=== PATIENT | female | born 1985 | race Caucasian/White ===

== ENCOUNTER 2019-12-13 13:36 | Outpatient (CLI) | payer OTHER, SELFPAY | END 2019-12-13 13:37 | disposition home or self-care (01) | PROVIDERS: Visit Provider Obstetrics & Gynecology | DX: Z01.818 Encounter for other preprocedural examination (principal); N39.3 Stress incontinence (female) (male) | CPT/HCPCS: 36415; 86850; 86900; 86901 ==

== ENCOUNTER 2019-12-20 00:12 | Outpatient (CLI) | payer OTHER, SELFPAY ==
[2019-12-20 19:32] LABS: SARS-CoV-2 RNA PCR Negative
== END 2019-12-20 00:13 | disposition home or self-care (01) ==
LOC: ANHCOVIDDT 00:12
PROVIDERS: Visit Provider Obstetrics & Gynecology
DX: Z01.812 Encounter for preprocedural laboratory examination (principal); Z11.59 Encounter for screening for other viral diseases
CPT/HCPCS: 87635; C9803; U0003

== ENCOUNTER 2019-12-22 01:20 | Day surgery (SDC) | payer OTHER, SELFPAY ==
[2019-12-07 12:57] VITALS: BMI 20.4
--- NOTE | 2019-12-21 22:41 | PM.IMHP ---
H&P: HPI History of Present Illness Date/Time: 12/21/19 22:41 Chief complaint: RADHA Narrative: 34 y/o with urinary leakage with jumping, coughing, or yelling. She has no nocturia, no urgency, no dysuria. She empties her bladder fully. She tried Vesicare, but this was not helpful. Her symptoms have worsened over several years and she is interested in surgical management. Review of Systems Review of Systems: All systems reviewed & are unremarkable except as noted in HPI and below PMFSH Surgical History Surgical History H/O LEEP History of tonsillectomy History of tubal ligation Social History Social History Smoking packs per day: 1 Smoking cigarettes per day: 20.0 Smoking status: Current every day smoker Tobacco type: cigarettes Second hand tobacco smoke exposure: Yes Alcohol intake: former Substance use: never Spiritual care concerns: No Meds Home Medications and Allergies Home Medications Medication Instructions Recorded Confirmed Type No Home Medications 12/07/19 12/07/19 History Allergies Allergy/AdvReac Type Severity Reaction Status Date / Time cephalexin AdvReac Mild Rash Verified 12/07/19 12:56 Exam Const: Orientation/consciousness: patient oriented x3 Other: Well-developed, well-nourished female in no acute distress. Neck: Thyroid: thyroid normal Lymphatic: no lymphadenopathy noted (in neck, axilla or inguinal nodes) Resp: Effort & Inspection: normal respiratory effort Auscultation: clear to auscultation bilaterally Cardio: Rate: regular rate Rhythm: regular rhythm Heart sounds: S1 normal heart sound present and S2 normal heart sound present GI: Other: ABD: Soft, nontender, nondistended. No guarding or rebound tenderness. No hepatosplenomegaly. : General: Yes no CVA tenderness Other: External genitalia: normal female hair distribution, without lesion. Urethral meatus: no lesion, non prolapsed. PVR 10mL. Urethral hypermobility is obvious. Bladder: no mass, nontender Vagina: well-estrogenized, without lesion or discharge. No cystocele or rectocele. Cervix: no lesion or discharge. Uterus: small, anteverted, freely mobile, nontender Adnexa: no mass or tenderness. Anus/perineum: no lesions, nontender Back/Spine/Pelvis: Back: no CVA tenderness Skin: General skin exam: normal color and no rashes or lesions noted Neuro: General: patient oriented x3 Extrem: Other: Extremities: nontender with no edema Psych: Mental Status: mental status grossly normal Affect: normal affect Assessment and Plan Assessment and plan (1) RADHA (stress urinary incontinence, female): Code(s): N39.3 - Stress incontinence (female) (male) Status: Acute Assessment and Plan: A: Genuine stress urinary incontinence. P: We reviewed surgical as well as nonsurgical options for treatment. She understands risks of surgery to include risks of anesthesia, risks of pain, infection, bleeding, blood products, thromboembolic phenomena and damage to adjacent structures such as bowel, bladder, ureters, blood vessels and nerves. She understands there is a risk of incomplete or unsatisfactory treatment of her problem. She understands there is a risk of urinary retention. She understands there is a risk she could require treatment for overactive bladder symptoms. She understands there is a risk of mesh erosion. She understands all these risks and elects to proceed with TVT/cystoscopy.
[2019-12-22] VITALS (10 sets, daily range): BP systolic 88–128; BP diastolic 60–82; PULSE 67–93; RESP 10–20; TEMP 36.1–36.7; O2SAT 99–100
--- NOTE | 2019-12-22 10:48 | WPDANESEPPF ---
Anes - Initial Pre Proc Eval Procedure: Operation Date: 12/22/19 12:00 Proposed Procedures p Tension Free Vaginal Taping - Jean Oliver MD Date/Time: 12/22/19 10:48 Surgeon: Jean Oliver MD Pre Op Diagnosis: RADHA Patient Data Age: 34 Gender: F Height: 5 ft 4 in Weight: 54 kg Allergies Allergy/AdvReac Type Severity Reaction Status Date / Time cephalexin AdvReac Mild Rash Verified 12/07/19 12:56 Home Medications Medication Instructions Recorded Confirmed Type No Home Medications 12/07/19 12/07/19 History Patient hx anesthesia problems: none Family hx anesthesia problems: none PMFSH Past Medical History Medical History (Updated 12/22/19 @ 10:48 by Deion Thompson MD) Healthy adult Surgical History Surgical History H/O LEEP History of tonsillectomy History of tubal ligation Social History Social History Smoking packs per day: 1 Smoking cigarettes per day: 20.0 Smoking status: Current every day smoker Tobacco type: cigarettes Second hand tobacco smoke exposure: Yes Alcohol intake: former Alcohol use details: EVERY COUPLE MONTHS Substance use: never Living arrangements: with family Spiritual care concerns: No Anes - Eval Final PreProcedure Day of Procedure 12/22/19 10:48 Patient weight: normal Heart: regular rate and rhythm Lungs: clear to auscultation Airway: Mallampati scale class II Neurological: alert and oriented Last oral intake: >/= 8 hours ASA classification: II Emergent: no Anesthetic plan: proceed Anesthesia type and monitoring: general LMA and standard monitoring Informed Consent: The patient's anesthetic plan and its attendant risks and benefits were discussed with the patient/family/POA. Questions were solicited and answers provided to the satisfaction of the patient/family/POA.
[2019-12-22] MEDS: LACTATED RINGERS 1,000 ML 30 ML IV CONT ×2 (10:51→12:56)
--- NOTE | 2019-12-22 12:05 | WPDHPUPDATE1 ---
History and Physical Update Update Date/Time: 12/22/19 12:05 History and Physical has been reviewed, including an updated exam of the patient. There are NO changes in the patient's condition. Risks, benefits, and alternatives have been discussed and questions answered. Patient agrees to proceed with procedure.
[2019-12-22] MEDS: ceFAZolin 2 GM/D5W 50 ML 2 GM/50 ML BAG IVPB (12:08)
--- NOTE | 2019-12-22 13:00 | PM.PROC ---
Procedure Note - Detailed Date of procedure: 12/22/19 Pre-op diagnosis: RADHA Genuine stress urinary incontinence Post-op diagnosis: same Procedure performed: Tension-free vaginal taping with cystocopy Description of procedure: The patient was taken to the operating room where she was prepared and draped in the usual sterile fashion in the dorsal lithotomy position. A sterile weighted speculum was placed posteriorly. The bladder is drained with a Matthews catheter. A vaginal incision below the mid urethra was made with a scalpel and dissection was undertaken laterally. The bladder was reflected to the patient's left, and the right-sided TVT needle was passed, exiting above the symphysis pubis. The bladder was reflected to the contralateral side and the left-sided TVT needle was passed. The Matthews catheter was withdrawn and cystoscopy was performed. The bladder was noted to be intact. The bladder was drained again with the Matthews catheter. The TVT mesh was advanced into place using a Do scissors for spacing. The vaginal incision was reapproximated using 2 0 chromic in an interrupted [id number] stitch. Hemostasis was excellent. The needle exit sites were reapproximated using Dermabond. Hemostasis was excellent here as well. Sponge, lap, needle and instrument counts were correct. She was awakened and taken to recovery room in stable condition. Implants: TVT mesh Anesthesia: GETA Surgeon: Jean Oliver MD Estimated blood loss (mL): 5 Drains: Yes (Matthews) Packing: No Pathology: none sent Complications: None Condition: stable Disposition: PACU Findings: The bladder was intact. There is no significant cystocele, rectocele or uterine prolapse.
--- NOTE | 2019-12-22 13:29 | SUR.PHASEI ---
Verbal order from Dr. Oliver: Instill 150mL NS into catheter and remove catheter. Patient is to void atleast 75mL before d/c.
== END 2019-12-22 15:40 | disposition home or self-care (01) ==
PROVIDERS: Visit Provider Obstetrics & Gynecology
PROC: 0TSD0ZZ Reposition Urethra, Open Approach (ICD-10-PCS; CPT 57288; principal; 2019-12-22 12:00)
DX: N39.3 Stress incontinence (female) (male) (principal); F17.210 Nicotine dependence, cigarettes, uncomplicated; Z98.51 Tubal ligation status
CPT/HCPCS: 57288; A9270; C1771; J0690; J1100; J1580; J2250; J2405; J2704; J3010; J7030; J7120

== ENCOUNTER 2023-02-17 11:33 | Emergency (ER) | payer OTHER, SELFPAY ==
--- NOTE | ~2023-02-17 | CT_ITS ---
CT of the Abdomen and Pelvis: Indication: Abdominal pain Technique: 2.5 mm axial scans were obtained through the abdomen and pelvis following intravenous adm inistration of 100 cc of Omnipaque 350. Dose reduction technique was used on this scan by utilizing a utomated exposure control and iterative reconstruction technique. The dose-length product (DLP) was 1 88.03 mGy-cm. Findings: Scans through the lung bases are unremarkable. The liver, spleen, pancreas, gallbladder, adrenals and kidneys are within normal limits. No evidence of aortic aneurysm. No lymphadenopathy. No bowel obstruction or bowel wall thickening. There is no evidence to suggest acute appendicitis. Images through the pelvis were performed. Urinary bladder unremarkable. No adnexal mass seen. No asci manish. Impression: No significant abnormalities seen. Reviewed, dictated and finalized at [facility]. Impression: No significant abnormalities seen.
[2023-02-17 11:46] VITALS: BP 113/66; PULSE 109; RESP 18; TEMP 37.2; O2SAT 100
--- NOTE | 2023-02-17 12:01 | ED.ABDPAIN ---
HPI - Abdominal Pain General Chief Complaint: Abdominal Pain Stated Complaint: RLQ pain Time Seen by Provider: 02/17/23 11:52 History of Present Illness HPI narrative: Pt presents with rlq abdominal pain since middle of the night. Pt says she noticed pain and it awoke her and the pain has persisted and gotten worse since onset. Pt denies urinary symptoms and is currently on period. Pt has had a tubal ligation. Pt has low grade temp. Related Data Allergies Allergy/AdvReac Type Severity Reaction Status Date / Time cephalexin AdvReac Mild Rash Verified 02/17/23 11:33 Review of Systems Review of Systems: All systems reviewed & are unremarkable except as noted in HPI and below PMFSH Past Medical History Medical History (Updated 02/17/23 @ 13:56 by Eugenio Meza III, DO) Healthy adult Surgical History Surgical History H/O LEEP History of tonsillectomy History of tubal ligation Social History Social History Smoking packs per day: 1 Smoking cigarettes per day: 20.0 Smoking status: Current every day smoker Tobacco type: cigarettes Second hand tobacco smoke exposure: Yes Alcohol intake: former Alcohol use details: EVERY COUPLE MONTHS Substance use: never Living arrangements: with family Spiritual care concerns: No Exam Const: General: healthy appearing and no acute distress Nutritional Appearance: well nourished Orientation/consciousness: patient oriented x3 Limitations: no limitations Resp: Effort & Inspection: normal respiratory effort Auscultation: clear to auscultation bilaterally Cardio: Rate: regular rate Rhythm: regular rhythm GI: GI Palp: Yes Soft to palpation and Yes Tenderness to palpation present (GI) ([facility]) Auscultation: normal bowel sounds Back/Spine/Pelvis: Back: no CVA tenderness Skin: General skin exam: normal color Wounds: no wounds Neuro: General: patient oriented x3, moves all extremities, no meningeal signs and no focal motor deficits Speech: normal speech Extrem: General: normal to inspection and no clubbing, cyanosis or edema Psych: Mental Status: mental status grossly normal Affect: normal affect Attitude: cooperative Course Vital Signs Vital signs: Vital Signs Temperature 99.0 F 02/17/23 11:46 Pulse Rate 109 H 02/17/23 11:46 Respiratory Rate 18 02/17/23 11:46 Blood Pressure 113/66 02/17/23 11:46 Pulse Oximetry 100 02/17/23 11:46 Oxygen Delivery Room Air 02/17/23 11:46 Temperature 99.0 F 02/17/23 11:46 Pulse Rate 102 H 02/17/23 14:14 Respiratory Rate 18 02/17/23 14:14 Blood Pressure 128/74 02/17/23 14:14 Pulse Oximetry 100 02/17/23 14:14 Oxygen Delivery Room Air 02/17/23 11:46 MDM - Abdominal Pain MDM Narrative Medical decision making narrative: pt presents with rlq abdominal pain. seems likely to be appy. will order labs and ct and treat pain and nausea awaiting results. no appy labs look ok ua positive. home on antibiotics and pain meds return if worse Differential Diagnosis Differential diagnosis: Likely abdominal pain, acute appendicitis, constipation, diverticulitis and gastroenteritis Lab Data 02/17/23 12:05 02/17/23 12:05 Labs: Lab Results 02/17/23 02/17/23 Range/Units 12:05 13:05 WBC 9.2 (4.5-10.0) K/mm3 RBC 4.34 (4.2-5.4) M/mm3 Hgb 12.4 (12.0-15.0) g/dL Hct 39.3 (37.0-47.0) % MCV 90.6 (80-100) fl MCH 28.6 (26-34) pg MCHC 31.6 L (32-36) g/dl RDW 13.7 (11.5-14.5) % Plt Count 212 (150-375) k/mm3 MPV 10.4 (7.4-10.4) fl Immature Gran % (Auto) 0.2 (0-0.5) % Neut % (Auto) 85.8 H (45.5-73.1) % Lymph % (Auto) 8.1 L (18.3-44.2) % Worth % (Auto) 5.2 (2.6-8.5) % Eos % (Auto) 0.4 (0-4.4) % Baso % (Auto) 0.3 (0.2-1.2) % Lymph # (Auto) 0.74 L (0.9-3.2) K/m
[2023-02-17 12:02] VITALS: BP 96/84; PULSE 105; RESP 18; O2SAT 100
[2023-02-17 12:10] LABS: Basophils Percent Auto 0.3 % (0.2-1.2); Eosinophils Percent Auto 0.4 % (0-4.4); Hematocrit 39.3 % (37.0-47.0); Hemoglobin 12.4 g/dL (12.0-15.0); Immature Granulocyte Absolute 0.02 K/mm3 (0.00-0.031); Immature Granulocyte Percent A 0.2 % (0-0.5); Lymphocytes Absolute Auto 0.74 K/mm3 (0.9-3.2); Lymphocytes Percent Auto 8.1 % (18.3-44.2); Mean Corpuscular HGB Conc 31.6 g/dl (32-36); Mean Corpuscular Hemoglobin 28.6 pg (26-34); Mean Corpuscular Volume 90.6 fl (80-100); Mean Platelet Volume 10.4 fl (7.4-10.4); Monocytes Absolute Auto 0.5 K/mm3 (0.1-0.6); Monocytes Percent Auto 5.2 % (2.6-8.5); Neutrophils Absolute Auto 7.8 K/mm3 (1.3-6.7); Neutrophils Percent Auto 85.8 % (45.5-73.1); Platelet Count Result 212 k/mm3 (150-375); Red Blood Count 4.34 M/mm3 (4.2-5.4); Red Cell Distribution Width 13.7 % (11.5-14.5); White Blood Count 9.2 K/mm3 (4.5-10.0)
[2023-02-17] MEDS: SODIUM CHLORIDE 0.9% IV 1,000 ML 999 ML IV CONT (12:13)
[2023-02-17] MEDS: ONDANSETRON INJ 4 MG/2 ML VIAL IV PUSH (12:13)
[2023-02-17] MEDS: HYDROmorphone HCL INJ (*CRX) 1 MG/ML SYR 0.5 MG IV PUSH (12:14)
[2023-02-17 12:21] LABS: Alanine Aminotransferase 13 U/L (6-35); Albumin Level 4.9 g/dL (3.5-5.1); Alkaline Phosphatase 68 U/L (38-126); Anion Gap 9 mmol/L (8-16); Aspartate Amino Transferase 20 U/L (14-36); Bilirubin,Total 0.6 mg/dL (0.2-1.3); Blood Urea Nitrogen 11 mg/dL (7-17); Carbon Dioxide 27 mmol/L (22-30); Chloride 102 mmol/L (98-107); Estimated CRCL calculation 80 ml/min; Estimated Glomerular Filt Rate > 60; Glucose 99 mg/dL (65-110); Potassium 3.5 mmol/L (3.4-5.0); Sodium 138 mmol/L (137-145)
[2023-02-17 12:23] LABS: Prothrombin Time 13.5 Seconds (11.1-14.7)
[2023-02-17 12:24] LABS: Partial Thromboplastin Time 29.4 SECONDS (22.3-36.8)
[2023-02-17 12:33] LABS: SPREG INTERNAL CONTROL Positive; Serum Qual hCG Negative
[2023-02-17 13:08] VITALS: BP 144/78; PULSE 96; RESP 17; O2SAT 98
[2023-02-17 13:19] LABS: Appearance Urine Clear (Clear); Bacteria Urine 3+ /hpf; Bilirubin Urine Negative (Negative); Blood Urine 3+ (Negative); Color Urine Yellow (Yellow); Glucose Urine UA Negative (Negative); Ketones Urine Negative (Negative); Leukocyte Esterase Ur Negative LEU/UL (Negative); Nitrate Urine Positive (Negative); Non Pathogenic Casts 0-2; Protein Urine Trace mg/dL (Negative); RBC Urine 51-100 /hpf (0-2); Squamous Epithelial Cell Urine Occasional /hpf (Few); pH Urine 7.5 (5.0-9.0)
[2023-02-17 13:21] LABS: Specific Grav Ur 1.072 (1.001-1.035)
[2023-02-17 13:22] LABS: Add Urine Microscopic? YES
[2023-02-17 14:14] VITALS: BP 128/74; PULSE 102; RESP 18; O2SAT 100
== END 2023-02-17 14:15 | disposition home or self-care (01) ==
PROVIDERS: Emergency Provider Emergency Medicine
DX: N39.0 Urinary tract infection, site not specified (principal); F17.210 Nicotine dependence, cigarettes, uncomplicated
CPT/HCPCS: 36415; 74177; 80053; 81001; 84703; 85025; 85610; 85730; 87077; 87086; 87186; 96361; 96374; 96375; 99284; J1170; J2405; J7030; Q9967

== ENCOUNTER 2024-01-24 13:24 | Day surgery (SDC) | payer OTHER, SELFPAY ==
[2024-01-24] VITALS (9 sets, daily range): BP systolic 97–123; BP diastolic 49–89; PULSE 65–110; RESP 13–24; TEMP 36.4–37.2; O2SAT 99–100
--- NOTE | ~2024-01-24 | US_ITS ---
US OB <=14 wk fetus w TV Ordering provider: Shelby Calvillo MD History: . r/o ectobic . Comparison: None. Technique: Transabdominal and endovaginal ultrasound of the pelvis (Doppler ultrasound interrogation techniques used as needed for this exam.) FINDINGS: CERVIX: Normal. UTERUS: Measures 10.2 x 4.3 x 6.1 cm in length which is within normal limits and is anteverted. No m yometrial masses. Fluid in the endometrial cavity. No pole is seen. CUL DE SAC: Large complex fluid collection is seen in the pelvis with hypoechoic area which may be a gestational sac. RIGHT OVARY: Possibly seen. LEFT OVARY: Not demonstrated. ADNEXA: Normal. No mass. IMPRESSION: Large amount of complex fluid seen in the pelvis with a mixed echogenicity area which have a central hypoechoic area which may be a gestational sac highly suggestive of ectopic . Minimal fluid seen in the uterus. Reviewed, dictated and finalized at location A. IMPRESSION: Large amount of complex fluid seen in the pelvis with a mixed echogenicity area which have a central hypoechoic area which may be a gestational sac highly sug gestive of ectopic . Minimal fluid seen in the uterus.
[2024-01-24 15:57] LABS: Basophils Percent Auto 0.4 % (0.2-1.2); Eosinophils Percent Auto 0.1 % (0-4.4); Hematocrit 29.3 % (37.0-47.0); Hemoglobin 9.8 g/dL (12.0-15.0); Immature Granulocyte Absolute 0.03 K/mm3 (0.00-0.031); Immature Granulocyte Percent A 0.3 % (0-0.5); Lymphocytes Absolute Auto 1.38 K/mm3 (0.9-3.2); Lymphocytes Percent Auto 13.5 % (18.3-44.2); Mean Corpuscular HGB Conc 33.4 g/dl (32-36); Mean Corpuscular Hemoglobin 29.7 pg (26-34); Mean Corpuscular Volume 88.8 fl (80-100); Mean Platelet Volume 10.7 fl (7.4-10.4); Monocytes Absolute Auto 0.4 K/mm3 (0.1-0.6); Monocytes Percent Auto 4.3 % (2.6-8.5); Neutrophils Absolute Auto 8.3 K/mm3 (1.3-6.7); Neutrophils Percent Auto 81.4 % (45.5-73.1); Platelet Count Result 210 k/mm3 (150-375); Red Cell Distribution Width 13.6 % (11.5-14.5); White Blood Count 10.2 K/mm3 (4.5-10.0)
--- NOTE | 2024-01-24 16:03 | ED.ABDPAIN ---
HPI - Abdominal Pain General Chief Complaint: Abdominal Pain <SHAYLEE Webb Last Filed: 01/24/24 16:45> Stated Complaint: abd pain <SHAYLEE Webb Last Filed: 01/24/24 16:45> Time Seen by Provider: 01/24/24 15:50 <SHAYLEE Webb Last Filed: 01/24/24 16:45> Source: patient <SHAYLEE Webb Last Filed: 01/24/24 16:45> Mode of arrival: ambulatory <SHAYLEE Webb Last Filed: 01/24/24 16:45> Limitations: no limitations <SHAYLEE Webb Last Filed: 01/24/24 16:45> History of Present Illness HPI narrative: This is a 38 year old female that presents to the ER for lower abdominal pain. Reports ongoing since this morning. Reports the pain is constant and sharp. She was seen at urgent care and sent to the ER for further evaluation after a positive test. Reports she had her tubes ties years ago. Her LMP was about one month ago. Reports she had a syncopal episode this morning after using the restroom. She started to feel very lightheaded and passed out. She does not believe she hit her head. She denies a headache or any other injuries from this. Denies fevers, or vomiting. <Irma Zarate PA-C - Last Filed: 01/24/24 16:45> Related Data Allergies/Adverse Reactions: Allergies Allergy/AdvReac Type Severity Reaction Status Date / Time cephalexin AdvReac Mild Rash Verified 01/24/24 17:37 <SHAYLEE Webb Last Filed: 01/24/24 16:45> Review of Systems Review of Systems: CONSTITUTIONAL: Denies fever GASTROINTESTINAL: Reports abdominal pain, nausea. Denies vomiting <SHAYLEE Webb Last Filed: 01/24/24 16:45> All systems reviewed & are unremarkable except as noted in HPI and below <SHAYLEE Webb Last Filed: 01/24/24 16:45> [facility] Past Medical History Medical History: Medical History Anemia <Irma Zarate PA-C - Last Filed: 01/24/24 16:45> Surgical History Surgical History: Surgical History H/O LEEP History of bladder suspension procedure History of tonsillectomy History of tubal ligation <Irma Zarate PA-C - Last Filed: 01/24/24 16:45> Social History Social History: Social History Smoking packs per day: 1 Smoking cigarettes per day: 20.0 Smoking status: Current every day smoker Tobacco type: cigarettes Second hand tobacco smoke exposure: Yes Alcohol intake: former Alcohol use details: EVERY COUPLE MONTHS Substance use: never Living arrangements: with family Spiritual care concerns: No <Irma Zarate PA-C - Last Filed: 01/24/24 16:45> Exam Narrative: GENERAL: Uncomfortable, well-nourished HEAD: Normocephalic, atraumatic. EYES: EOMI. CHEST: Clear to auscultation. No respiratory distress. No wheezes rales or rhonchi HEART: Regular rate and rhythm. No murmur heard. Normal peripheral pulses. ABDOMEN: Soft, nondistended, normal active bowel sounds. Tender to palpation throughout the abdomen EXTREMITIES: Normal range of motion. No edema. SKIN: Warm, dry, no rash. NEURO: No focal deficits. Alert and oriented x3. PSYCH: Normal mood and affect <Irma Zarate PA-C - Last Filed: 01/24/24 16:45> Course Course Emergency Course: Patient updated on her workup and need for management in the OR <Irma Zarate PA-C - Last Filed: 01/24/24 16:45> QUALITY IMPROVEMENT ANALYST/PA Physician Supervision For this patient encounter, I reviewed the QUALITY IMPROVEMENT ANALYST or PA documentation, treatment plan, and medical decision making; and I had [id number] time with this patient. <Osman Taylor MD - Last Filed: 01/24/24 21:59> Consultations Consultation #1: Spoke with Dr. Owens about patient and workup. Patient will be taken to the OR for further management <Irma Zarate PA-C - Last Filed: 01/24/24 16:4
[2024-01-24 16:06] LABS: Alanine Aminotransferase 10 U/L (6-35); Albumin Level 3.8 g/dL (3.5-5.1); Alkaline Phosphatase 53 U/L (38-126); Anion Gap 6 mmol/L (4-12); Aspartate Amino Transferase 17 U/L (14-36); Bilirubin,Total 0.5 mg/dL (0.2-1.3); Blood Urea Nitrogen 15 mg/dL (7-17); Calcium 8.5 mg/dL (8.4-10.2); Carbon Dioxide 23 mmol/L (22-30); Chloride 105 mmol/L (98-107); Estimated CRCL calculation 108 ml/min; Estimated Glomerular Filt Rate > 60; Glucose 140 mg/dL (65-110); Potassium 3.6 mmol/L (3.4-5.0); Sodium 134 mmol/L (137-145)
--- NOTE | 2024-01-24 16:06 | ECG_ITS ---
Test Date: 2024-01-24 16:23:37 Measurements Intervals [place] Rate: 80 P: 18 TN: 109 QRS: 61 QRSD: 87 T: 56 QT: 394 QTc: 454 Interpretive Statements SINUS RHYTHM WITH SHORT TN INTERVAL BASELINE ARTIFACT- I, III, AVL BORDERLINE ECG No previous ECG available for comparison Electronically Signed On 01-24-2024 16:49:03 CDT by Gerson Vela D.O.
[2024-01-24] MEDS: ONDANSETRON INJ 4 MG/2 ML VIAL IV PUSH (16:16)
[2024-01-24] MEDS: SODIUM CHLORIDE 0.9% IV 1,000 ML 999 ML (16:16)
--- NOTE | 2024-01-24 16:29 | WPDHPUPDATE1 ---
History and Physical Update Update Date/Time: 01/24/24 16:29 History and Physical has been reviewed, including an updated exam of the patient. There are NO changes in the patient's condition. Risks, benefits, and alternatives have been discussed and questions answered. Patient agrees to proceed with procedure.
--- NOTE | 2024-01-24 16:29 | PM.HPGS ---
History of Present Illness History of Present Illness Consent: Risks, benefits, and alternatives have been discussed and questions answered. Patient agrees to proceed with procedure. Chief complaint: abd pain Narrative: Jo Schroeder is a 38 year old female with a ruptured left ectopic . The patient began having left lower quadrant pain this morning and went to the [place] emergency room. She had a positive test but they had no ultrasound or elastic attacher chainstitch doctors on staff. She was instructed to come to [facility]. Patient with the large amount of complex fluid within the pelvis consistent with a ruptured ectopic and a possible sac within the left tube. Patient states her last period was approximately 5 weeks ago. She knew she was late but was not concerned as she had had a prior tubal ligation. It was recommended to undergo a laparoscopic management of ectopic . In addition we will remove any tubal remnants bilaterally. Risks of infection, bleeding, and injury to organs are reviewed. Patient voices understanding and agrees to proceed. Review of Systems Review of Systems: All systems reviewed & are unremarkable except as noted in HPI and below ( HPI) PMFSH Past Medical History Medical History (Updated 01/24/24 @ 16:32 by Christine Owens MD) Healthy adult (normal spontaneous vaginal delivery) x3 Surgical History Surgical History (Updated 01/24/24 @ 16:32 by Christine Owens MD) H/O LEEP History of bladder suspension procedure History of tonsillectomy History of tubal ligation Social History Social History Smoking packs per day: 1 Smoking cigarettes per day: 20.0 Smoking status: Current every day smoker Tobacco type: cigarettes Second hand tobacco smoke exposure: Yes Alcohol intake: former Alcohol use details: EVERY COUPLE MONTHS Substance use: never Living arrangements: with family Spiritual care concerns: No Meds Home Medications and Allergies Home Medications Medication Instructions Recorded Confirmed Type hydrocodone 5 mg-acetaminophen 325 1 - 2 tablet PO Q6H PRN pain #30 12/22/19 Rx mg tablet ([place]) tabs hydrocodone 5 mg-acetaminophen 325 1 tablet PO Q6H PRN pain #14 tabs 02/17/23 Rx mg tablet nitrofurantoin 100 mg PO Q12H 5 days #10 caps 02/17/23 Rx monohydrate/macrocrystals 100 mg capsule (Macrobid) Allergies Allergy/AdvReac Type Severity Reaction Status Date / Time cephalexin AdvReac Mild Rash Verified 02/17/23 11:33 Vital Signs Vital Signs - 24 hr 01/24/24 13:24 01/24/24 15:26 Temperature 97.5 F L Pulse Rate 109 H 110 H Respiratory Rate 18 18 Blood Pressure 101/49 L 106/89 Pulse Oximetry 100 100 Oxygen Delivery Room Air Exam Const: General: alert, awake and acute distress ( appears in pain) Nutritional Appearance: average body habitus Resp: Effort & Inspection: normal respiratory effort GI: Inspection: normal to inspection GI Palp: Yes abdominal tenderness, Yes Soft to palpation, Yes Tenderness to palpation present (GI) and Yes Guarding due to palpation present (GI) Assessment and Plan Assessment and plan (1) Ruptured ectopic : Code(s): O00.90 - Unspecified ectopic without intrauterine Status: Acute Assessment and Plan: plan to proceed with laparoscopic management of ectopic and removal of any tubal remnants bilaterally
[2024-01-24] MEDS: MORPHINE SULFATE (*CRX) 4 MG/ML INJ IV PUSH (16:30)
[2024-01-24] MEDS: LACTATED RINGERS 1,000 ML 30 ML IV CONT ×2 (17:30→19:30)
--- NOTE | 2024-01-24 17:36 | WPDANESEPPF ---
Anes - Initial Pre Proc Eval Procedure: Operation Date: 01/24/24 18:00 Proposed Procedures p Diagnostic Laparoscopy, Possible bilateral oophorectomy - Christine Owens MD Operation Date: 01/24/24 18:00 Proposed Procedures p Diagnostic Laparoscopy Possible Oophorectomy - Christine Owens MD Date/Time: 01/24/24 17:36 Surgeon: Christine Owens MD Pre Op Diagnosis: abd pain Patient Data Age: 38 Gender: F Height: 1.63 m Weight: 56 kg Last Vital Signs Temp 36.4 C L 01/24/24 13:24 Pulse 110 H 01/24/24 15:26 Resp 18 01/24/24 15:26 BP 106/89 01/24/24 15:26 Pulse Ox 100 01/24/24 15:26 O2 Del Method Room Air 01/24/24 13:24 Allergies Allergy/AdvReac Type Severity Reaction Status Date / Time cephalexin AdvReac Mild Rash Verified 01/24/24 17:37 Home Medications Medication Instructions Recorded Confirmed Type hydrocodone 5 mg-acetaminophen 325 1 - 2 tablet PO Q6H PRN pain #30 12/22/19 Rx mg tablet ([place]) tabs hydrocodone 5 mg-acetaminophen 325 1 tablet PO Q6H PRN pain #14 tabs 02/17/23 Rx mg tablet nitrofurantoin 100 mg PO Q12H 5 days #10 caps 02/17/23 Rx monohydrate/macrocrystals 100 mg capsule (Macrobid) Laboratory Tests 01/24/24 15:50 WBC 10.2 H K/mm3 (4.5-10.0) RBC 3.30 L M/mm3 (4.2-5.4) Hgb 9.8 L g/dL (12.0-15.0) Hct 29.3 L % (37.0-47.0) MCV 88.8 fl (80-100) MCH 29.7 pg (26-34) MCHC 33.4 g/dl (32-36) RDW 13.6 % (11.5-14.5) Plt Count 210 k/mm3 (150-375) MPV 10.7 H fl (7.4-10.4) Immature Gran % (Auto) 0.3 % (0-0.5) Neut % (Auto) 81.4 H % (45.5-73.1) Lymph % (Auto) 13.5 L % (18.3-44.2) [place] % (Auto) 4.3 % (2.6-8.5) Eos % (Auto) 0.1 % (0-4.4) Baso % (Auto) 0.4 % (0.2-1.2) Lymph # (Auto) 1.38 K/mm3 (0.9-3.2) Haakon # (Auto) 0.4 K/mm3 (0.1-0.6) Eos # (Auto) 0.0 K/mm3 (0-0.3) Baso # (Auto) 0.0 K/mm3 (0.0-0.1) Abs Immat Gran (auto) 0.03 K/mm3 (0.00-0.031) Absolute Neuts (auto) 8.3 H K/mm3 (1.3-6.7) Absolute Nucleated RBC 0.000 K/mm3 (0.0-0.012) Nucleated RBC % 0.0 % (0.0-0.2) Sodium 134 L mmol/L (137-145) Potassium 3.6 mmol/L (3.4-5.0) Chloride 105 mmol/L (98-107) Carbon Dioxide 23 mmol/L (22-30) Anion Gap 6 mmol/L (4-12) BUN 15 mg/dL (7-17) Creatinine 0.50 L mg/dL (0.7-1.0) Estim Creat Clear Calc 108 ml/min Estimated GFR > 60 (59 - ) Glucose 140 H mg/dL (65-110) Calcium 8.5 mg/dL (8.4-10.2) Total Bilirubin 0.5 mg/dL (0.2-1.3) AST 17 U/L (14-36) ALT 10 U/L (6-35) Alkaline Phosphatase 53 U/L (38-126) Total Protein 7.0 g/dL (6.3-8.2) Albumin 3.8 g/dL (3.5-5.1) Beta HCG, Quant 2032.90 mIU/ML Blood Type O Positive Antibody Screen Negative Screen Not Reportable Baby's Blood Type Not Reportable Baby's HANNAH Not Reportable Doses of RhIg Required 0 Patient hx anesthesia problems: none Family hx anesthesia problems: none Results Review: All pre-operative results and documents have been reviewed as part of the pre-operative evaluation. PMFSH Past Medical History Medical History Anemia Surgical History Surgical History H/O LEEP History of bladder suspension procedure History of tonsillectomy History of tubal ligation Social History Social History Smoking packs per day: 1 Smoking cigarettes per day: 20.0 Smoking status: Current every day smoker Tobacco type: cigarettes Second hand tobacco smoke exposure: Yes Alcohol intake: former Alcohol use details: EVERY COUPLE MONTHS Substance use: never Living arrangements: with family Spiritual care concerns: No Anes
--- NOTE | 2024-01-24 18:25 | P.OP_ITS ---
Procedure Note - Detailed Date of Procedure 01/24/24 Pre-op Diagnosis ruptured ectopic Post-op Diagnosis Same Procedure Performed removal of right tubal ectopic with right distal fallopian tube removal of left distal fallopian tube cautery of proximal bilateral fallopian tubes Surgeon Christine Owens MD Anesthesia General Findings 450cc of blood in the pelvis right tubal ectopic in the distal portion of the tube evidence of prior bilateral tubal ligation normal-appearing ovaries and uterus Description of Procedure The patient is taken to the operating room and placed under anesthesia in the dorsal lithotomy position. She was prepped and draped in usual sterile fashion. Bladder was drained with a red rubber catheter. [place] speculum was placed in the vagina and the cervix grasped on the anterior lip with a tenaculum. The acorn manipulator was placed. The speculum was removed. Attention was turned to the abdomen where a horizontal skin incision was made through the prior incision at the base of the umbilicus. The abdomen was tented and the Veress needle placed. Water drop test is normal and opening patient pressure was 7mmHg. The pneumoperitoneum was obtained using CO2 to a patient pressure of 15mmHg. The Veress needle was then removed and the 5mm Optiview trocar was placed. Intra-abdominal placement was confirmed with the laparoscope. The 2 additional trocars were placed in the right left lower quadrant 2cm above the symphysis pubis. The old blood is suction from the pelvis and lower abdomen. 450cc in total are removed. The tubal is no longer actively bleeding. The distal right tube was grasped at its fimbriated end and the mesosalpinx cauterized and cut using the LigaSure device. Once the distal portion of the tube is fully cauterized and cut the specimen was placed in a specimen bag and removed. The proximal portion of the tube is cauterized in 3 locations. The left tube distally is removed using the LigaSure device cauterizing and cutting mesosalpinx. The proximal left tube is cauterized in 3 locations. Good hemostasis was noted at all sites. The instruments are removed and the pneumoperitoneum was reduced. Skin incisions were closed using 4-0 nylon in an interrupted fashion. Vaginal instruments are removed. Sponge, needle, and instrument counts are correct per the OR staff. The patient was awakened from anesthesia and taken to recovery in stable condition. Estimated Blood Loss 1 (450cc of old blood in the pelvis was evacuated) Drains No Packing No Pathology Yes ( bilateral distal tubal segments with the ectopic in the right segment) Complications No immediate complications Condition Stable Disposition PACU
[2024-01-24] MEDS: fentaNYL CITRATE INJ (*CRX) 100 MCG/2 ML VIAL 25 MCG IV PUSH ×2 (18:36→18:39)
[2024-01-24] MEDS: oxyCODONE HCL (*CRX) 5 MG TAB IR PO (20:06)
== END 2024-01-24 20:15 | disposition home or self-care (01) ==
LOC: ANHED 16:15 → ANHSURGERY 17:08
PROVIDERS: Emergency Medicine; Emergency Provider Physician Assistant; Visit Provider Obstetrics & Gynecology Gynecology
PROC: (CPT 49320; principal; 2024-01-24 18:00)
DX: O00.102 Left tubal pregnancy without intrauterine pregnancy (principal); K66.1 Hemoperitoneum; N83.8 Other noninflammatory disorders of ovary, fallopian tube and broad ligament; F17.210 Nicotine dependence, cigarettes, uncomplicated
CPT/HCPCS: 59151; 58661; 36415; 76801; 76817; 80053; 84702; 85025; 85461; 86850; 86900; 86901; 88302; 93005; 96374; 96375; 99285; A9270; J1100; J1596; J2250; J2270; J2405; J2704; J2710; J3010; J7030; J7120

== ENCOUNTER 2025-01-03 12:30 | Emergency (ER) | payer OTHER, SELFPAY ==
--- OUTSIDE RECORDS SUMMARY | 2025-01-03 12:33 | XMS_ITS | Clinical Summary ---
Author Organization [facility] Address [address] [place] [address] Phone Care Team Providers Care Seamer Operator Name Role Phone Bird Reeves APRN, SURGEON PARTNER Unavailable Ariela Muller MD Primary Care Provider [phone] Allergies No known active allergies Medications solifenacin (VESICARE) 10 MG TabletIndication s:OAB (overactive bladder) TAKE 1 TABLET BY MOUTH DAILY 90 Tablet 04/13/2024 Active Family History Medical History Relation Name Comments Cancer Mother Throat Cancer Paternal Grandmother Relation Name Status Comments Mother Paternal Grandmother Social History Tobacco Use Types Packs/Day Years Used Date Smoking Tobacco: Every Day Cigarettes Smokeless Tobacco: Never Tobacco Cessation:Ready to Q uit: Not Asked; Counseling Given: Not Answered Alcohol Use Standard Drinks/Week Comments Yes 0 (1 standard drink = 0.6 oz pur e alcohol) Rare Sexually Active Control Partners Comments Not Currently Comments No Sex and Gender Information Value Date Recorded Sex Assigned at Not on file Legal Sex Female 10:36 AM VENEER JOINTER OFFBEARER Gender Identity Not on file Sexual Orientation Not on file Last Filed Vital Signs Vital Sign Reading Time Taken Comments Blood Pressure 122/76 04/13/2024 11:13 AM VENEER JOINTER OFFBEARER Pulse 96 04/13/2024 11:13 AM VENEER JOINTER OFFBEARER Temperature - - Respiratory Rate 16 04/13/2024 11:1 3 AM VENEER JOINTER OFFBEARER Oxygen Saturation 99% 04/13/2024 11: 13 AM VENEER JOINTER OFFBEARER Inhaled Oxygen Concentration - - Weight 57.5 kg (126 lb 12.8 oz) 024 11:13 AM VENEER JOINTER OFFBEARER Height 162.6 cm (5' 4) 04/13/2024 11:1 3 AM VENEER JOINTER OFFBEARER Body Mass Index 21.77 04/13/2024 11:13 AM VENEER JOINTER OFFBEARER Plan of Treatment Health Maintenance Due Date Last Done Comments Hepatitis C Virus (HCV) Screening 1983 Mammogram 1983 TdaP Immunization 1983 Hepatitis B Immunization (1 of 3 - 19+ 3-dose series) 2002 Pneumococcal Immunization Co mbined (1 of 2 - PCV) 2002 Pap Smear 2004 Human Papillomavirus (HPV) Immunization (1 - 3-dose SCDM series) 2010 Cervical Cancer Screening (CCS) 2013 HPV/Cotest 2013 Discussion re Starting/Frequ ency of Mammograms 2023 Influenza Immunization (#1) 2024 SARS-COV-2 Immunization ( season) 2024 Respiratory Syncytial Virus (RSV) Immunization (Adult) (1 - 1-dose 75+ series) 2058 Meningococcal Immunization (ACWY) Aged Out No longer eligible based on patient's age to complete this topic Rotavirus Immunization Aged Out No lo nger eligible based on patient's age to complete this topic Insurance MEDICAID [employer] Care Teams Seamer Operator Relationship Specialty Start Date End Date Ariela Muller MD [address] [place] [address] PCP - General Primary Care 04/08/24 Bird Reeves APRN, SURGEON PARTNER [address] [place] [address] Nurse Practitioner Advanced Practice Nurse 04/08/24
--- OUTSIDE RECORDS SUMMARY | 2025-01-03 12:33 | XMS_ITS | Clinical Summary ---
Author Organization [facility] Address [address] [place] [address] Care Team Providers Care Accessibility Lift Technician Name Role Phone Ezequiel Darnell MD Primary Care Provider Source Comments [facility],non-owned Affiliates and Associated Physician Practices is amultiple site organization consisting of ambulatory clinics and hospital sitesin [place]. This disclosure is being madepursuant to the Care Everywhere program and may not contain all information available regarding this patient. Last updated 18.[facility] Allergies Active Allergy Reactions Criticality Noted Date Comments Cephalexin 05/23/2016 Medications * Be aware that medications may not be up to date on this document. Alwaysverify current medications with the patient. No known medications Encounters Date Type Department Care Team Description 11/29/2024 Telephone [facility] MATERNAL/ EVALUATION UNIT [facility] [place] [address] Hien Eaton Scheduling from Last 3 Months Social History Tobacco Use Types Packs/Day Years Used Date Smoking Tobacco: Every Day Comments Unknown Sex and Gender Information Value Date Recorded Sex Assigned at Not on file Legal Sex Female 2:15 PM ELECTRICAL CONTRACTOR Gender Identity Not on file Sexual Orientation Not on file Last Filed Vital Signs Vital Sign Reading Time Taken Comments Blood Pressure 111/67 05/23/2016 6:43 PM ELECTRICAL CONTRACTOR Pulse 88 05/23/2016 6:43 PM ELECTRICAL CONTRACTOR Temperature 36.7 C (98 F) 05/23/2016 6:43 PM ELECTRICAL CONTRACTOR Respiratory Rate 18 05/23/2016 6:43 PM ELECTRICAL CONTRACTOR Oxygen Saturation - - Inhaled Oxygen Concentration - - Weight 54.4 kg (120 lb) 05/23/2016 6:43 PM ELECTRICAL CONTRACTOR Height 162.6 cm (5' 4) 05/23/2016 6:43 PM ELECTRICAL CONTRACTOR Body Mass Index 20.6 05/23/2016 6:43 PM ELECTRICAL CONTRACTOR Plan of Treatment Upcoming Encounters Date Type Department Care Team (Late st Contact Info) Description 04/14/2025 1:30 PM ELECTRICAL CONTRACTOR Appointment [facility] MATERNAL/ EVALUATION UNIT [address] [place] [address] Health Maintenance Due Date Last Done Comments LIPID TESTING 1983 MAMMOGRAM 1983 HIV SCREENING 1998 HEPATITIS C SCREENING 06/15/2001 DTAP/TDAP/TD VACCINES (1 - Tdap) 2002 HEPATITIS B VACCINE (1 of 3 - 19+ 3-dose series) 2002 PNEUMOCOCCAL VACCINE (1 of 2 - PCV) 2002 PAP SMEAR 2004 HPV VACCINE (1 - 3-dose SCDM series) 2010 DEPRESSION SCREENING 04/28/2024 COVID-19 VACCINE (1 - 2023-2 5 season) 2024 INFLUENZA VACCINE (#1) 2024 ZOSTER VACCINE (1 of 2) 2033 HIB VACCINE Aged Out No longer eligi ble based on patient's age to complete this topic MENINGOCOCCAL (Group B) VACC INE SHARED DECISION-MAKING Aged Out No longer eligibl e based on patient's age to complete this topic MENINGOCOCCAL GROUPS A/C/Y/W VACCINE Aged Out No longer eligible b ased on patient's age to complete this topic Insurance [facility] Care Teams Accessibility Lift Technician Relationship Specialty Start Date End Date Ezequiel Darnell MD [address] [facility] [address] [place] [phone] PCP - General Internal Medicine 05/23/16
--- OUTSIDE RECORDS SUMMARY | 2025-01-03 12:33 | XMS_ITS | Encounter Summary ---
Author Organization [facility] Address [address] [place] [address] Phone Care Team Providers Care Pack Operator Name Role Phone Bird Reeves APRN, CNP Unavailable [phone] Ariela Muller MD Primary Care Provider [phone] Reason for Visit * Reason Comments Medication Refill Encounter Details Date Type Department Care Team (Late st Contact Info) Description 04/13/2024 Refill [facility] [address] [place] [address] Bird Reeves APRN, CNP [address] [place] [address] Medication Refill Social History Tobacco Use Types Packs/Day Years Used Date Smoking Tobacco: Every Day Cigarettes Smokeless Tobacco: Never Alcohol Use Standard Drinks/Week Comments Yes 0 (1 standard drink = 0.6 oz pur e alcohol) Rare Sexually Active Control Partners Comments Not Currently Comments No Sex and Gender Information Value Date Recorded Sex Assigned at Not on file Legal Sex Female 10:36 AM TALENT SPECIALIST Gender Identity Not on file Sexual Orientation Not on file documented as of this encounter Plan of Treatment Not on file documented as of this encounter Visit Diagnoses Diagnosis OAB (overactive bladder) Hypertonicity of bladder documented in this encounter Care Teams Pack Operator Relationship Specialty Start Date End Date Ariela Muller MD [address] [place] [address] PCP - General Primary Care 04/08/24 Bird Reeves APRN, DIRECTOR OF CARDIAC REHABILITATION [address] [place] [address] Nurse Practitioner Advanced Practice Nurse 04/08/24 documented as of this encounter
[2025-01-03 12:37] VITALS: BP 124/73; PULSE 115; RESP 18; TEMP 37.6; O2SAT 100
--- OUTSIDE RECORDS SUMMARY | 2025-01-03 13:11 | XMS_ITS | Encounter Summary ---
Author Organization [facility] Address [address] [place] [address] Phone Care Team Providers Care Copy Chaser Name Role Phone Bird Reeves APRN, CNP Unavailable Ariela Muller MD Primary Care Provider [phone] Reason for Visit * Reason Comments Medication Refill Encounter Details Date Type Department Care Team (Late st Contact Info) Description 04/13/2024 Refill [facility] [address] [place] [address] Bird Reeves APRN, CNP [address] [place] [address] Medication Refill Social History Tobacco Use Types Packs/Day Years Used Date Smoking Tobacco: Every Day Cigarettes Smokeless Tobacco: Never Alcohol Use Standard Drinks/Week Comments Yes 0 (1 standard drink = 0.6 oz pur e alcohol) Rare Sexually Active Control Partners Comments Not Currently Comments No Sex and Gender Information Value Date Recorded Sex Assigned at Not on file Legal Sex Female 10:36 AM GEAR REPAIR SUPERVISOR Gender Identity Not on file Sexual Orientation Not on file documented as of this encounter Plan of Treatment Not on file documented as of this encounter Visit Diagnoses Diagnosis OAB (overactive bladder) Hypertonicity of bladder documented in this encounter Care Teams Copy Chaser Relationship Specialty Start Date End Date Ariela Muller MD [address] [place] [address] PCP - General Primary Care 04/08/24 Bird Reeves APRN, STEEL BURNER [address] [place] [address] Nurse Practitioner Advanced Practice Nurse 04/08/24 documented as of this encounter
--- OUTSIDE RECORDS SUMMARY | 2025-01-03 13:11 | XMS_ITS | Clinical Summary ---
Author Organization [facility] [place] [facility] Address [address] [place] [address] Phone Care Team Providers Care Inpatient Coder Name Role Phone Bird Reeves APRN, ANNUAL GIVING DIRECTOR Unavailable Ariela Muller MD Primary Care Provider [phone] Allergies No known active allergies Medications solifenacin [...] on file Legal Sex Female 10:36 AM WEB FEEDER Gender Identity Not on file Sexual Orientation Not on file Last Filed Vital Signs Vital Sign Reading Time Taken Comments Blood Pressure 122/76 04/13/2024 11:13 AM WEB FEEDER Pulse 96 04/13/2024 11:13 AM WEB FEEDER Temperature - - Respiratory Rate 16 04/13/2024 11:1 3 AM WEB FEEDER Oxygen Saturation 99% 04/13/2024 11: 13 AM WEB FEEDER Inhaled Oxygen Concentration - - Weight 57.5 kg (126 lb 12.8 oz) 024 11:13 AM WEB FEEDER Height 162.6 cm (5' 4) 04/13/2024 11:1 3 AM WEB FEEDER Body Mass Index 21.77 04/13/2024 11:13 AM WEB FEEDER Plan of Treatment Health Maintenance Due Date [...] age to complete this topic Insurance MED[employer]ID [employer] Care Teams Inpatient Coder Relationship Specialty Start Date End Date Ariela Muller MD [address] [place] [address] PCP - General Primary Care 04/08/24 Bird Reeves APRN, ANNUAL GIVING DIRECTOR [address] [place] [address] Nurse Practitioner Advanced Practice Nurse 04/08/24
--- OUTSIDE RECORDS SUMMARY | 2025-01-03 13:11 | XMS_ITS | Clinical Summary ---
Author Organization [email or web address] Address [address] [place] [address] Care Team Providers Care Skiver Welt End Name Role Phone Ezequiel Darnell MD Primary Care Provider Source Comments [email or web address],non-owned Affiliates and Associated Physician Practices is amultiple site organization consisting of ambulatory clinics and hospital sitesin [place], [place], [place] and [place]. This disclosure is being madepursuant to the Care Everywhere program and may not contain all information available regarding this patient. Last updated 18.[email or web address] Allergies Active Allergy Reactions Criticality Noted Date Comments Cephalexin 05/23/2016 Medications * Be aware that medications may not be up to date on this document. Alwaysverify current medications with the patient. No known medications Encounters Date Type Department Care Team Description 11/29/2024 Telephone [facility] MATERNAL/ EVALUATION UNIT [facility] [place] [address] Hien Etaon Scheduling from Last 3 Months Social History Tobacco Use Types Packs/Day Years Used Date Smoking Tobacco: Every Day Comments Unknown Sex and Gender Information Value Date Recorded Sex Assigned at Not on file Legal Sex Female 2:15 PM MARKET RISK SPECIALIST Gender Identity Not on file Sexual Orientation Not on file Last Filed Vital Signs Vital Sign Reading Time Taken Comments Blood Pressure 111/67 05/23/2016 6:43 PM MARKET RISK SPECIALIST Pulse 88 05/23/2016 6:43 PM MARKET RISK SPECIALIST Temperature 36.7 C (98 F) 05/23/2016 6:43 PM MARKET RISK SPECIALIST Respiratory Rate 18 05/23/2016 6:43 PM MARKET RISK SPECIALIST Oxygen Saturation - - Inhaled Oxygen Concentration - - Weight 54.4 kg (120 lb) 05/23/2016 6:43 PM MARKET RISK SPECIALIST Height 162.6 cm (5' 4) 05/23/2016 6:43 PM MARKET RISK SPECIALIST Body Mass Index 20.6 05/23/2016 6:43 PM MARKET RISK SPECIALIST Plan of Treatment Upcoming Encounters Date Type Department Care Team (Late st Contact Info) Description 04/14/2025 1:30 PM MARKET RISK SPECIALIST Appointment [facility] MATERNAL/ EVALUATION UNIT [address] [place] [address] Health Maintenance Due Date Last Done Comments [...] patient's age to complete this topic Insurance [facility] Care Teams Skiver Welt End Relationship Specialty Start Date End Date Ezequiel Darnell MD [address] [facility] [address] [place] [phone] PCP - General Internal Medicine 05/23/16
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
[2025-01-03 13:50] LABS: BEDSIDEPREGUCG Negative (Negative)
[2025-01-03 13:56] LABS: Add Urine Microscopic? YES; Appearance Urine Cloudy (Clear); Glucose Urine UA Negative (Negative); Leukocyte Esterase Ur 1+ LEU/UL (Negative); Nitrate Urine Positive (Negative); Non Pathogenic Casts 0-2; Specific Grav Ur 1.013 (1.001-1.035)
[2025-01-03 13:58] LABS: Influenza A QL RT-PCR Negative (Negative); Influenza B QL RT-PCR Negative (Negative); RSV RNA, RT-PCR Negative (Negative); SARS-CoV-2 RNA PCR Negative (Negative)
[2025-01-03 15:36] LABS: Hematocrit 34.3 % (37.0-47.0); Hemoglobin 11.0 g/dL (12.0-15.0); Immature Granulocyte Percent A 0.4 % (0-0.5); Lymphocytes Absolute Auto 0.89 K/mm3 (0.9-3.2); Mean Corpuscular HGB Conc 32.1 g/dl (32-36); Mean Corpuscular Hemoglobin 27.6 pg (26-34); Mean Corpuscular Volume 86.0 fl (80-100); Nucleated Red Blood Cells Absolute Auto 0.000 K/mm3 (0.0-0.012); Nucleated Red Blood Cells Perc 0.0 % (0.0-0.2); Platelet Count Result 193 k/mm3 (150-375); Red Blood Count 3.99 M/mm3 (4.2-5.4); White Blood Count 9.5 K/mm3 (4.5-10.0)
[2025-01-03] MEDS: ACETAMINOPHEN 500 MG TABLET 1000 MG PO (15:48)
[2025-01-03] MEDS: SODIUM CHLORIDE 0.9% IV 1,000 ML 999 ML IV CONT (15:51)
[2025-01-03 15:56] LABS: Alanine Aminotransferase 12 U/L (6-35); Albumin Level 4.1 g/dL (3.5-5.1); Alkaline Phosphatase 79 U/L (38-126); Anion Gap 8 mmol/L (4-12); Aspartate Amino Transferase 23 U/L (14-36); Bilirubin,Total 0.4 mg/dL (0.2-1.3); Blood Urea Nitrogen 4 mg/dL (7-17); Calcium 8.8 mg/dL (8.4-10.2); Carbon Dioxide 24 mmol/L (22-30); Chloride 100 mmol/L (98-107); Estimated CRCL calculation 110 ml/min; Estimated Glomerular Filt Rate > 60; Glucose 95 mg/dL (65-110); Lipase 23 U/L (23-300); Potassium 3.3 mmol/L (3.4-5.0); Sodium 132 mmol/L (137-145); Total Protein 7.1 g/dL (6.3-8.2)
[2025-01-03] MEDS: POTASSIUM BICARBONATE 25 MEQ TABEF PO (16:30)
[2025-01-03] MEDS: PHENAZOPYRIDINE HCL 100 MG TABLET PO (17:00)
== END 2025-01-03 17:10 | disposition home or self-care (01) ==
PROVIDERS: Emergency Provider Student in an Organized Health Care Education/Training Program
DX: N39.0 Urinary tract infection, site not specified (principal); R50.9 Fever, unspecified; M79.10 Myalgia, unspecified site; E87.1 Hypo-osmolality and hyponatremia; E87.6 Hypokalemia; D64.9 Anemia, unspecified; Z20.822 Contact with and (suspected) exposure to COVID-19; F17.210 Nicotine dependence, cigarettes, uncomplicated
CPT/HCPCS: 36415; 80053; 81001; 81025; 83690; 85025; 87086; 87186; 87637; 96360; 99283; A9270; J7030